=== PATIENT | male | born 1980 | race Caucasian/White ===

== ENCOUNTER → 2016-11-19 | Outpatient (CLI) | payer OTHER ==
[~2016-11-19] VITALS: Ht 181.6 cm; Wt 133.4 kg
[~2016-11-19] MED LIST: EXCEDRIN EXTRA1 EACH PO; PROAIR RESPICL90 MCG IH; TYLENOL REGULA325 MG PO; ZYRTEC10 M2 PO
== END | disposition home or self-care (01) ==
LOC: AMB 10:47
DX: K20.9 Esophagitis, unspecified (principal); K44.9 Diaphragmatic hernia without obstruction or gangrene; K29.80 Duodenitis without bleeding; R13.14 Dysphagia, pharyngoesophageal phase; K21.0 Gastro-esophageal reflux disease with esophagitis; E66.9 Obesity, unspecified; Z68.41 Body mass index [BMI] 40.0-44.9, adult; J45.20 Mild intermittent asthma, uncomplicated; Q25.1 Coarctation of aorta; Z91.013 Allergy to seafood; Z88.2 Allergy status to sulfonamides; Z91.09 Other allergy status, other than to drugs and biological substances; Z82.61 Family history of arthritis; Z82.5 Family history of asthma and other chronic lower respiratory diseases; Z83.79 Family history of other diseases of the digestive system
CPT/HCPCS: 88305; J2250

== ENCOUNTER → 2017-03-26 | Outpatient (CLI) | payer OTHER | END | disposition home or self-care (01) | LOC: RAD 08:00 | DX: I77.819 Aortic ectasia, unspecified site (principal); R59.0 Localized enlarged lymph nodes; M41.84 Other forms of scoliosis, thoracic region; M47.894 Other spondylosis, thoracic region; R91.8 Other nonspecific abnormal finding of lung field | CPT/HCPCS: 71275 ==

== ENCOUNTER 2017-07-24 21:59 | Emergency (ER) | payer OTHER ==
[~2017-07-24] VITALS: Ht 182.9 cm; Wt 137.3 kg
[2017-07-24 23:21] LABS: HEMATOCRIT 41.4 % (38.0-50.0); HEMOGLOBIN 13.8 G/DL (12.5-16.6); MCH 28.8 PG (29.0-34.0); MCHC 33.3 G/DL (30.0-36.0); MCV 86.4 FL (86-99); PLATELET COUNT 241 K/uL (156-360); RBC DIS.WIDTH-CV 11.9 % (11.8-14.6); RBC DIS.WIDTH-SD 38.4 % (39-53); RED BLOOD COUNT 4.79 M/uL (4.00-5.50); WHITE BLOOD COUNT 6.1 K/uL (4.1-10.2)
[2017-07-24 23:36] LABS: ALBUMIN 4.3 g/dL (3.2-4.8)
[2017-07-24 23:37] LABS: CHLORIDE 109 mEq/L (99-109); POTASSIUM 3.9 mEq/L (3.7-5.4); SODIUM 142 mEq/L (136-147)
[2017-07-24 23:39] LABS: GLUCOSE 105 mg/dL (70-99); TOTAL PROTEIN 7.7 g/dL (6.4-8.3)
[2017-07-24 23:41] LABS: TOTAL BILIRUBIN 0.3 mg/dL (0.0-1.0)
[2017-07-24 23:42] LABS: ALKALINE PHOSPHATASE 70 IU/L (3-129)
[2017-07-24 23:43] LABS: CREATININE 0.9 mg/dL (0.6-1.3); GFR ESTIMATE (CALCULATED) > 59 mL/min/ (58.99-99999)
[2017-07-24 23:44] LABS: AST (GOT) 30 IU/L (2-34); UREA NITROGEN (BUN) 12 mg/dL (9-23)
[2017-07-24 23:46] LABS: ALT (GPT) 40 IU/L (3-49)
[2017-07-25 00:15] LABS: MONOSPOT (MONONUCLEOSIS SEROL) NEGATIVE
[2017-07-25] MEDS ORDERED: AUGMENTIN875 MG PO (01:14)
[2017-07-25 01:49] VITALS: BP 178/102
== END 2017-07-25 01:51 | disposition home or self-care (01) ==
LOC: EME 21:59
PROVIDERS: Physician Assistant
DX: K11.20 Sialoadenitis, unspecified (principal); Z88.2 Allergy status to sulfonamides
CPT/HCPCS: 70491; 80053; 85027; 86308; 87651 90; 99281; 99284; J7030